=== PATIENT | male | born 1965 | race Caucasian/White ===

== ENCOUNTER 2024-08-24 05:43 | Inpatient (IN) | payer SELFPAY ==
[~2024-08-24] VITALS: Ht 179.1 cm; Wt 90.7 kg
[2024-08-24] MEDS: SODIUM CHLORIDE 0.9% 1,000 ML IV ONE ×2 (06:57→12:58)
[2024-08-24] MEDS: ONDANSETRON HCL 4MG/2ML INJ IV STA (06:57)
[2024-08-24] MEDS: MECLIZINE 25MG TABLET PO ONE ×2 (07:09→10:57)
[2024-08-24 07:11] LABS: HEMATOCRIT. 42.7 % (42.0-52.0); HEMOGLOBIN. 14.9 g/dL (14.0-18.0); MEAN CORPUSCULAR VOLUME 94.2 fL (80.0-94.0); MEAN PLATELET VOLUME 7.9 fl (7.4-10.4); PLATELET 232 x1000/uL (130-400); RED BLOOD CELL COUNT 4.53 mill/uL (4.7-6.1); RED CELL DISTRIBUTION WIDTH 12.8 % (11.6-14.6); WHITE BLOOD COUNT 10.7 x1000/uL (4.5-11.0)
[2024-08-24 07:15] LABS: DIFFERENTIAL COMMENT 1
[2024-08-24 07:26] LABS: CHLORIDE 106 mEq/L (98-107); POTASSIUM 3.4 mEq/L (3.5-5.1); SODIUM 143 mEq/L (136-145)
[2024-08-24 07:27] LABS: CALCIUM 9.4 mg/dL (8.7-10.4); CARBON DIOXIDE 24 mEq/L (21-32)
[2024-08-24 07:32] LABS: CREATININE 0.9 mg/dL (0.6-1.3); GLUCOSE 150 mg/dL (70-105); UREA NITROGEN BLOOD 13 mg/dL (9-23)
[2024-08-24 07:35] LABS: TROPONIN I HIGH SENSITIVITY 7 ng/L (3.0-53)
[2024-08-24] MEDS: METOCLOPRAMIDE HCL 10MG/2ML VIAL IV ONE (10:57)
[2024-08-24] MEDS ORDERED: IPRATROPIUM/ALBUTEROL 0.5-3(2.5)MG/3ML NEB HHN PRN ×2 (14:30→14:45)
[2024-08-24] MEDS ORDERED: GUAIFENESIN 200MG/10ML SUGAR FREE UDC PO PRN ×2 (14:30→14:45)
[2024-08-24] MEDS ORDERED: MAGNESIUM/ALUMINUM HYDROXIDE/SIMETHICONE 30ML UDC PO PRN ×2 (14:30→14:45)
[2024-08-24] MEDS ORDERED: ONDANSETRON HCL 4MG/2ML INJ IV PRN ×2 (14:30→14:45)
[2024-08-24] MEDS ORDERED: MECLIZINE 25MG TABLET PO PRN ×2 (14:30→14:45)
[2024-08-24] MEDS ORDERED: CLONIDINE 0.1MG TABLET PO PRN ×2 (14:30→14:45)
[2024-08-24] MEDS ORDERED: ACETAMINOPHEN 325MG TABLET PO PRN ×4 (14:30→14:45)
[2024-08-24] MEDS ORDERED: DOCUSATE SODIUM 100MG CAPSULE PO PRN ×2 (14:30→14:45)
[2024-08-24] MEDS ORDERED: HYDROCODONE/ACETAMINOPHEN 5/325MG TABLET PO PRN ×2 (14:30→14:45)
[2024-08-24] MEDS ORDERED: NA PHOS,M-B/NA PHOS,DI-BA ENEMA 118ML PR PRN ×2 (14:30→15:00)
[2024-08-24] MEDS ORDERED: DIPHENHYDRAMINE 50MG/ML VIAL IV PRN ×2 (14:30→14:45)
[2024-08-24] MEDS: ENOXAPARIN 40MG/0.4ML SYR SUBCUT SCH (15:00)
[2024-08-24 16:00] VITALS: BP 125/77; PULSE 60; RESP 18; TEMP 36.4; O2SAT 100
[2024-08-24 16:17] VITALS: BP 125/77; PULSE 60; RESP 18; TEMP 36.4
[2024-08-24] MEDS: SODIUM CHLORIDE 0.45% 1,000 ML IV SCH (17:07)
[2024-08-24] MEDS: POTASSIUM CHLORIDE 20MEQ TABLET SR PO NR (17:08)
[2024-08-24] MEDS ORDERED: ATOR40TA70 MT (17:29)
[2024-08-24] MEDS ORDERED: AMLO5TAB88 MT (17:29)
[2024-08-24] MEDS ORDERED: LEVO137T17 MT (17:29)
[2024-08-24 20:00] VITALS: RESP 20; O2SAT 95
[2024-08-24] MEDS: FAMOTIDINE 20MG TABLET PO SCH (21:00)
[2024-08-24] MEDS: ATORVASTATIN CALCIUM 40MG TABLET PO SCH (21:00)
[2024-08-25] VITALS: BP 160/70; RESP 18; TEMP 36.6; O2SAT 97
[2024-08-25 04:00] VITALS: BP 159/81; RESP 20; TEMP 36.6; O2SAT 96
[2024-08-25] MEDS: LEVOTHYROXINE SODIUM 137MCG TABLET PO SCH (06:35)
[2024-08-25 08:00] VITALS: BP 133/82; PULSE 64; RESP 18; TEMP 37; O2SAT 98
[2024-08-25] MEDS: ASPIRIN 81MG TABLET PO SCH (08:45)
[2024-08-25] MEDS: MULTIVITAMINS,THER W-MINERALS TABLET PO SCH (08:46)
[2024-08-25] MEDS: AMLODIPINE 5MG TABLET PO SCH (08:46)
[2024-08-25] MEDS ORDERED: MULTIVITAMINS,THER W-MINERALS TABLET PO SCH (09:00)
[2024-08-25 09:19] LABS: BASOPHILS % 0.6 % (0.0-2.0); CALCIUM 9.2 mg/dL (8.7-10.4); CARBON DIOXIDE 23 mEq/L (21-32); CHLORIDE 112 mEq/L (98-107); EOSINOPHILS % 1.4 % (0.0-5.0); HEMATOCRIT. 44.6 % (42.0-52.0); LYMPHOCYTES % 20.3 % (20.0-50.0); MEAN CORPUSCULAR HEMOGLOBIN 32.9 pg (28.0-32.0); MEAN CORPUSCULAR HGB CONC 33.7 g/dL (31.0-37.0); MEAN CORPUSCULAR VOLUME 97.7 fL (80.0-94.0); MEAN PLATELET VOLUME 8.3 fl (7.4-10.4); MONOCYTES % 6.2 % (2.0-8.0); NEUTROPHILS % 71.5 % (40.0-76.0); PLATELET 174 x1000/uL (130-400); POTASSIUM 4.4 mEq/L (3.5-5.1); RED BLOOD CELL COUNT 4.56 mill/uL (4.7-6.1); RED CELL DISTRIBUTION WIDTH 13.2 % (11.6-14.6); SODIUM 143 mEq/L (136-145); WHITE BLOOD COUNT 7.6 x1000/uL (4.5-11.0)
[2024-08-25 09:24] LABS: GLUCOSE 92 mg/dL (70-105)
[2024-08-25 09:25] LABS: TRIGLYCERIDE 90 mg/dL (0-150); UREA NITROGEN BLOOD 15 mg/dL (9-23)
[2024-08-25 09:26] LABS: CHOLESTEROL 96 mg/dL (<200); LDL CHOLESTEROL 45 mg/dL (5-100)
[2024-08-25 09:27] LABS: HDL CHOLESTEROL 41 mg/dL (>55); THYROID STIMULATING HORMONE 0.41 uIU/mL (0.55-4.78)
[2024-08-25 10:26] VITALS: BP 133/82; PULSE 64; TEMP 98.6; O2SAT 100
[2024-08-25 16:48] LABS: PLATELET ESTIMATE NORMAL
== END 2024-08-25 12:00 | disposition home or self-care (01) | DRG 111 ==
LOC: ER 05:43 → 8WST 13:32 → EDBEDREQ 13:35 → ER 14:27
PROVIDERS: ADMIT Internal Medicine; ATTEND Internal Medicine
DX: R42 Dizziness and giddiness (principal); E03.9 Hypothyroidism, unspecified; E78.00 Pure hypercholesterolemia, unspecified; E87.6 Hypokalemia; I10 Essential (primary) hypertension; I25.10 Atherosclerotic heart disease of native coronary artery without angina pectoris; R73.9 Hyperglycemia, unspecified; K59.00 Constipation, unspecified; Z79.82 Long term (current) use of aspirin; Z79.899 Other long term (current) drug therapy; Z82.49 Family history of ischemic heart disease and other diseases of the circulatory system; Z95.5 Presence of coronary angioplasty implant and graft; I25.2 Old myocardial infarction
CPT/HCPCS: 36415; 80048; 80061; 84443; 84484; 85025; 93005; 99285; A4606; J1650; J2405; J2765; J7030; J8597